=== PATIENT | female | born 1940 | race Caucasian/White ===

== ENCOUNTER → 2020-01-16 14:15 | Outpatient (CLI) | payer MEDICARE, OTHER, SELFPAY ==
--- NOTE | 2020-01-16 | DI.ECHO.S_ITS ---
[place] +---------+ [facility] +---------+ : : [address] : [address] : : : : [id number] : : : : Phone: [phone]+ Echocardiogram Report + + :Name: IDALIA MCCARTHY Study Date: 01/16/2020 Height: 70 in : :[facility] Weight: 214 lb : : Gender: Female BSA: 2.1 m2 : :: 1940 Age: 79 yrs BP: 123/65 mmHg: :Reason For Study: DYSPNEA : : Performed By: Klaus De Los Santos : :Referring: ERNESTINA MARTINEZ : + + Interpretation Summary 1) Normal left ventricular thickness, size, wall motion and systolic function (EF 60-65%). 2) Normal right ventricular size and function. 3) No significant valvular abnormalities. 4) The right ventricular systolic pressure is estimated to be at least 24 mmHg based on an estimated right atrial pressure of 3 mm Hg. 5) No prior Echo available for comparison. Procedure: A two-dimensional transthoracic echocardiogram with color flow and Doppler was performed. The study quality was technically adequate. There is no prior echocardiogram noted for this patient. The patient was in normal sinus rhythm during the exam. Left Ventricle: The left ventricle is normal in size. There is normal left ventricular wall thickness. The ejection fraction is estimated to be 60-65%. There are no focal wall motion abnormalities. Right Ventricle: The right ventricle is normal in size and function. Atria: Both atria are normal in size. There is no Doppler evidence for an atrial septal defect. Mitral Valve: The mitral valve is normal in structure and function. There is trace mitral regurgitation. Aortic Valve: The aortic valve is trileaflet. The aortic valve opens well. There is no aortic valve stenosis. There is trace aortic regurgitation. Tricuspid Valve: The tricuspid valve is normal in structure and function. There is mild tricuspid regurgitation. The right ventricular systolic pressure is estimated to be at least 24 mmHg based on an estimated right atrial pressure of 3 mm Hg. Pulmonic Valve: The pulmonic valve is normal in structure and function. There is trace pulmonic regurgitation. Great Vessels: The aortic root is normal size. The dimensions of the ascending aorta are normal. The pulmonary artery is normal size. The IVC is of normal diameter and collapses greater than 50% with a sniff. This suggests a low right atrial pressure of 3 mm Hg. Pericardium/ Pleura There is no pericardial effusion. There is no pleural effusion. MMode/2D Measurements & Calculations LVIDd: 4.5 cm LVOT diam: 2.2 cm LVIDs: 2.6 cm Ao root diam: 3.4 cm FS: 43.8 % asc Aorta Diam: 3.0 cm EPSS: 0.36 cm Ao Arch Diam (Prox Trans): 2.5 cm IVSd: 0.78 cm LVPWd: 0.93 cm LV lopez. diameter/BSA (cm/m^2): 2.1 LV sys. diameter/BSA (cm/m^2): 1.2 LA dimension: 3.6 cm RA long axis: 5.2 cm LA A2 area: 17.9 cm2 RA area: 18.0 cm2 LA A4 area: 16.1 cm2 RA vol: 52.8 ml LA length (vol): 4.4 cm RA : 24.6 ml/m2 LA vol: 55.4 ml IVC diam: 1.4 cm LA vol index: 25.8 ml/m2 TAPSE: 2.1 cm Doppler Measurements & Calculations Ao V2 max: 136.4 cm/sec LVOT Max Filemon: 103.1 cm/sec Ao V2 mean: 99.7 cm/sec LV V1 max P.3 mmHg Ao max P.4 mmHg LV V1 VTI: 19.2 cm Ao mean P.3 mmHg FANG(I,D): 2.5 cm2 Ao V2 VTI: 28.2 cm FANG(V,D): 2.8 cm2 sev ratio: 0.68 FANG indexed to BSA (cm^2/m^2): 1.2 MV E max filemon: 58.1 cm/sec TR max filemon: 226.2 cm/sec MV A max filemon: 82.8 cm/sec TR max P.5 mmHg MV E/A: 0.70 PA V2 max: 93.6 cm/sec Med Peak E' Filemon: 4.0 cm/sec PA V2 mean: 72.5 cm/sec E/E' med: 14.5 PA mean P.3 mmHg Lat Peak E' Filemon: 6.1 cm/sec PA pr(Accel): 43.0 mmHg E/E' lat: 9.5 E/e' average: 12.0 MV dec time: 0.19 sec SV(LVOT): 71.1 ml Reading Physician:05:05 PM
== END ==
PROVIDERS: PCP Family Medicine; Referring Provider Internal Medicine Cardiovascular Disease; Visit Provider Internal Medicine Cardiovascular Disease
DX: I07.1 Rheumatic tricuspid insufficiency (principal); R06.09 Other forms of dyspnea
CPT/HCPCS: 93306

== ENCOUNTER → 2022-12-25 15:34 | Outpatient (CLI) | payer MEDICARE, OTHER, SELFPAY ==
--- NOTE | 2022-12-25 | DI.MRI.S_ITS ---
PROCEDURE: MR CERVICAL SPINE WO CON INDICATIONS: Strain of muscle, fascia and tendon at neck level TECHNIQUE: Noncontrast sagittal T1 spin echo and T2 fast spin echo, sagittal STIR, foraminal oblique sagittal T2 fast spin echo, and axial gradient echo or T2 fast spin echo through the cervical spine. COMPARISON: None. FINDINGS: Image quality: Mild motion artifact. Alignment and Curvature: Straightening of normal cervical lordosis with mild reversal. Grade 1 anterolisthesis of C4 on C5 and grade 1 retrolisthesis of C5 on C6. Bone Marrow: Marrow demonstrates normal overall signal. Spinal Cord: Visualized spinal cord has normal size and signal. No cerebellar tonsillar herniation. Paraspinous Soft Tissues: No paravertebral masses. Prevertebral soft tissues are normal in thickness. C2-C3: Disc desiccation. Small posterior disc osteophyte complex. No central canal stenosis. Facet and uncovertebral arthropathy. No right neural foraminal stenosis. Mild left neural foraminal stenosis. C3-C4: Disc desiccation and height loss with posterior disc osteophyte complex. Mild central canal stenosis. Facet and uncovertebral arthropathy. Mild right and moderate left neural foraminal stenosis. C4-C5: Disc desiccation height loss with posterior disc osteophyte complex abutting the ventral cord. Mild central canal stenosis. Facet and uncovertebral arthropathy. Severe left neural foraminal stenosis. No right neural foraminal stenosis. C5-C6: Disc desiccation height loss with posterior disc osteophyte complex abutting the ventral cord. Mild central canal stenosis. Facet and uncovertebral arthropathy. Severe right neural foraminal stenosis. Mild left neural foraminal stenosis. C6-C7: Disc desiccation and height loss with small posterior disc osteophyte complex. No central canal stenosis. Facet and uncovertebral arthropathy. Mild bilateral neural foraminal stenosis. C7-T1: No central canal or neural foraminal stenosis. IMPRESSION: 1. Multilevel degenerative changes of the cervical spine as described above. 2. Mild multilevel central canal stenosis. 3. Multilevel neural foraminal stenosis with severe left neural foraminal stenosis at C4-C5 and severe right neural foraminal stenosis at C5-C6. Dictated by: Derrick Monaco M.D. on 12/28/2022 at 8:50 Approved by: Derrick Monaco M.D. on 12/28/2022 at 8:57
== END ==
PROVIDERS: PCP Family Medicine; Referring Provider Physician Assistant Surgical; Visit Provider Physician Assistant Surgical
DX: S16.1XXA Strain of muscle, fascia and tendon at neck level, initial encounter (principal); S22.080A Wedge compression fracture of T11-T12 vertebra, initial encounter for closed fracture; M47.812 Spondylosis without myelopathy or radiculopathy, cervical region; M48.02 Spinal stenosis, cervical region; X58.XXXA Exposure to other specified factors, initial encounter
CPT/HCPCS: 72141

== ENCOUNTER → 2022-12-30 16:19 | Outpatient (CLI) | payer MEDICARE, OTHER, SELFPAY ==
--- NOTE | 2022-12-30 | DI.MRI.S_ITS ---
PROCEDURE: MR THORACIC SPINE WO CON INDICATIONS: wedge compression fracture of t-11-t12 vertebra TECHNIQUE: Noncontrast sagittal T1 spine echo and T2 fast spin echo, sagittal STIR, and T2 fast spin echo through the thoracic spine. COMPARISON: Outside Film, CR, XR THORACIC SPINE 2 VIEWS, 11/27/2022, 9:34. Outside Film, CR, XR LUMBAR SPINE 2 OR 3 VIEWS, 11/27/2022, 9:34. FINDINGS: Image quality: Excellent. Alignment and Curvature: There is normal bony alignment. Bone Marrow: Marrow is of normal overall signal. There is a severe comminuted fracture of the T11 vertebral body with a prominent vertical component and a degree of distraction of fracture fragments, with mild posterior retropulsion of the posterior portion of the vertebral body measuring approximately 5 mm without canal stenosis. There is some signal abnormality remaining within it, suggesting that it still has a subacute component. Additionally, there is a mild acute or subacute superior endplate compression of T12. Spinal Cord: Visualized spinal cord is normal in size and signal. Paraspinous Soft Tissues: No paravertebral masses. Miscellaneous: On axial images, central canal and foramina appear widely patent at all scanned levels. IMPRESSION: 1. Severe comminuted T11 compression fracture with mild posterior retropulsion, without canal stenosis. This fracture maintains a degree of subacuity. 2. Mild acute or subacute superior endplate compression of T12. 3. No canal stenosis or foraminal stenosis. Dictated by: Maciel Morley M.D. on 12/31/2022 at 8:32 Approved by: Maciel Morley M.D. on 12/31/2022 at 8:38
== END ==
PROVIDERS: PCP Family Medicine; Referring Provider Physician Assistant Surgical; Visit Provider Physician Assistant Surgical
DX: S22.080A Wedge compression fracture of T11-T12 vertebra, initial encounter for closed fracture (principal); S16.1XXA Strain of muscle, fascia and tendon at neck level, initial encounter
CPT/HCPCS: 72146